=== PATIENT | male | born 1960 | race Two or more races ===

== ENCOUNTER 2018-01-21 11:02 | Day surgery (SDC) | payer OTHER, SELFPAY ==
[~2018-01-21] VITALS: Ht 182.9 cm; Wt 86.5 kg
[~2018-01-21 11:02] MED LIST: ALBU90I INH; ASCO1ER PO; Ascorbic Acid500 M2 PO; Ativan1 MG PO; CELE100; CELE200; CYCL10; CYCL10 PO; DIAZ10; DIAZ5 PO; DOCU100 PO; DULO30 PO; Daily Multiple1 EACH PO; Desyrel150 MG; FENT50TP; FENT75TP; FENT75TP TOP; FLUO10; HYDACE10B PO; HYDMOR2; HYDMOR2 PO; HYDMOR8; LORA2 PO; META800 PO; METH10; METH10 PO; METH40 PO; METO100ER PO; MORP10S; MORP15ER PO; MORP30 PO; MULVITA PO; MULVITMIND PO; NITR.4SL SL; NITR.4TPA TOP; OMEP10ER; OMEP20ER PO; ONDA4 PO; ONDA8ODT MM; OXYACE10; OXYACE10 PO; OXYACE5T PO; OXYC30 PO; PROM25; PROM25 PO; Promethazine HC50 M1 PO; ROPI.25 PO; TRAZ100 PO; TRAZ50; Vitamin C1000 M1 PO; Zanaflex4 M1 PO
== END 2018-01-21 13:23 | disposition home or self-care (01) ==
LOC: ORSCSDS 11:02
PROVIDERS: Anesthesiology
PROC: 3E0R33Z Introduction of Anti-inflammatory into Spinal Canal, Percutaneous Approach (ICD-10-PCS; principal; 2018-01-21 12:00)
DX: M96.1 Postlaminectomy syndrome, not elsewhere classified (principal); M54.12 Radiculopathy, cervical region; Z79.899 Other long term (current) drug therapy; I10 Essential (primary) hypertension; K21.9 Gastro-esophageal reflux disease without esophagitis; R56.9 Unspecified convulsions
CPT/HCPCS: J1040; J1885; J2250; J2405; J2550; J3010; J7040; J7120

== ENCOUNTER 2018-10-22 10:44 | Day surgery (SDC) | payer OTHER ==
[~2018-10-22] VITALS: Ht 182.9 cm; Wt 84.8 kg
--- NOTE | 2018-10-22 11:21 | NUR ---
10/22/18 1121 Patience Carlin PT NOTIFIED IN APPROXIMATE WAIT TIME. PT AWARE THAT HE IS EARLY AND IS UNDERSTANDING. KYM LYNN WITHIN REACH AND DAWN AT CHAIRSIDE. WARM BLANKET PROVIDED.
--- NOTE | 2018-10-22 12:33 | NUR ---
10/22/18 1233 Genesis Vasquez PATIENT TAKEN TO SDU WITHOUT S/S DISTRESS. NO C/O. VSS FOR PATIENT T/O CASE. PATIENT APPEARED TO TOLERATE CASE WITHOUT DIFFICULTY.
== END 2018-10-22 12:55 | disposition home or self-care (01) ==
LOC: ORSCSDS 10:44
PROVIDERS: Anesthesiology
PROC: 3E0R33Z Introduction of Anti-inflammatory into Spinal Canal, Percutaneous Approach (ICD-10-PCS; principal; 2018-10-22 12:00)
DX: M54.12 Radiculopathy, cervical region (principal); M96.1 Postlaminectomy syndrome, not elsewhere classified; M48.02 Spinal stenosis, cervical region; I10 Essential (primary) hypertension; K21.9 Gastro-esophageal reflux disease without esophagitis; Z79.899 Other long term (current) drug therapy
CPT/HCPCS: J1040; J1885; J2250; J2550; J3010; J7120

== ENCOUNTER 2019-04-28 07:58 | Emergency (ER) | payer OTHER ==
[~2019-04-28] VITALS: Ht 180.3 cm; Wt 85.7 kg
[2019-04-28] MEDS ORDERED: OMEP20ER PO (08:14)
[2019-05-12] MEDS ORDERED: TRAZ50 PO (11:24)
[2019-05-12] MEDS ORDERED: LORA2 PO (11:25)
[2019-06-23] MEDS ORDERED: Acerola C500 MG PO (14:46)
[2019-06-23] MEDS ORDERED: DAILY VALUE1 EACH PO (14:46)
[2019-06-23] MEDS ORDERED: Nitroglycerin0.4 MG SL (14:47)
== END 2019-04-28 08:35 | disposition home or self-care (01) ==
LOC: ER 07:58
DX: M79.674 Pain in right toe(s) (principal); F41.9 Anxiety disorder, unspecified
CPT/HCPCS: 99282

== ENCOUNTER 2019-05-17 13:33 | Day surgery (SDC) | payer OTHER ==
[~2019-05-17] VITALS: Ht 182.9 cm; Wt 86.3 kg
[~2019-05-17 13:33] MED LIST changes: +TRAZ50 PO
[2019-06-23] MEDS ORDERED: DAILY VALUE1 EACH PO (14:46)
[2019-06-23] MEDS ORDERED: Acerola C500 MG PO (14:46)
[2019-06-23] MEDS ORDERED: Nitroglycerin0.4 MG SL (14:47)
== END 2019-05-17 16:37 | disposition home or self-care (01) ==
LOC: ORSCSDS 13:33
PROVIDERS: Internal Medicine Gastroenterology
PROC: 0DB58ZX Excision of Esophagus, Via Natural or Artificial Opening Endoscopic, Diagnostic (ICD-10-PCS; principal; 2019-05-17 15:15)
PROC: 0DB68ZX Excision of Stomach, Via Natural or Artificial Opening Endoscopic, Diagnostic (ICD-10-PCS; principal; 2019-05-17 15:15)
PROC: 0D758ZZ Dilation of Esophagus, Via Natural or Artificial Opening Endoscopic (ICD-10-PCS; principal; 2019-05-17 15:15)
DX: R13.10 Dysphagia, unspecified (principal); K31.7 Polyp of stomach and duodenum; K20.9 Esophagitis, unspecified; K22.2 Esophageal obstruction; Z80.0 Family history of malignant neoplasm of digestive organs; I10 Essential (primary) hypertension; Z79.899 Other long term (current) drug therapy
CPT/HCPCS: 88305; 88342; J2405; J2704; J7120

== ENCOUNTER 2019-05-20 08:14 | Day surgery (SDC) | payer OTHER ==
[~2019-05-20] VITALS: Ht 182.9 cm; Wt 98.1 kg
--- NOTE | 2019-05-20 10:08 | NUR ---
05/20/19 1008 Rina Washington, MED C PHENERGAN AND TORADOL IV
[2019-06-23] MEDS ORDERED: Acerola C500 MG PO (14:46)
[2019-06-23] MEDS ORDERED: DAILY VALUE1 EACH PO (14:46)
[2019-06-23] MEDS ORDERED: Nitroglycerin0.4 MG SL (14:47)
== END 2019-05-20 10:57 | disposition home or self-care (01) ==
LOC: ORSCSDS 08:14
PROVIDERS: Anesthesiology
PROC: 3E0R33Z Introduction of Anti-inflammatory into Spinal Canal, Percutaneous Approach (ICD-10-PCS; principal; 2019-05-20 09:30)
DX: M96.1 Postlaminectomy syndrome, not elsewhere classified (principal); M54.12 Radiculopathy, cervical region; I10 Essential (primary) hypertension; Z79.899 Other long term (current) drug therapy
CPT/HCPCS: J1040; J1885; J2250; J2550; J3010

== ENCOUNTER 2019-07-08 06:05 | Day surgery (SDC) | payer OTHER ==
[~2019-07-08] VITALS: Ht 182.9 cm; Wt 85.7 kg
[~2019-07-08 06:05] MED LIST changes: +Acerola C500 MG PO; +DAILY VALUE1 EACH PO; +Nitroglycerin0.4 MG SL
--- NOTE | 2019-07-08 08:30 | NUR ---
07/08/19 0830 Rina Washington GIVEN PHENERGAN 12.5 MG X 2, PAITENT IS DRY HEAVING, HE STATES THIS IS COMMON FOR HIM AFTER ANY PROCEDURES
--- NOTE | 2019-07-08 09:06 | NUR ---
07/08/19905 Tierra Haile 0858 RECEIVED REPORT FROM [facility] SHE STATES PT IS READY TO BE DISCHARGED. PT AGREES THAT HE IS READY TO BE DISCHARGED, HE STATES HE JUST WANTS TO GO HOME AND SLEEP, VSS, STILL DRY HEAVING. HE STATES THAT IS NORMAL FOR HIM AND WANTS TO GO HOME. PROCEEDING TO DISCHARGE.
== END 2019-07-08 09:08 | disposition home or self-care (01) ==
LOC: ORSCSDS 06:05
PROVIDERS: Podiatrist Foot & Ankle Surgery
PROC: 0QBQ0ZZ Excision of Right Toe Phalanx, Open Approach (ICD-10-PCS; principal; 2019-07-08 07:30)
DX: M20.61 Acquired deformities of toe(s), unspecified, right foot (principal); I10 Essential (primary) hypertension; K21.9 Gastro-esophageal reflux disease without esophagitis; F41.9 Anxiety disorder, unspecified; Z79.899 Other long term (current) drug therapy; M79.674 Pain in right toe(s); R00.1 Bradycardia, unspecified; R94.31 Abnormal electrocardiogram [ECG] [EKG]
CPT/HCPCS: 80048; 85025; 93005; J0171; J0690; J1100; J2250; J2405; J2550; J2704; J3010; J7120

== ENCOUNTER 2019-07-12 10:36 | Day surgery (SDC) | payer OTHER ==
[~2019-07-12] VITALS: Ht 182.9 cm; Wt 83.9 kg
--- NOTE | 2019-07-12 12:21 | NUR ---
07/12/19 1221 Suad Arango 1 TRY VEIN MOVED RIGHT HAND 2 TRY RIGHT WRIST VEIN MOVED 3 TRY GOOD UPPER ARM RIGHT
== END 2019-07-12 14:29 | disposition home or self-care (01) ==
LOC: ORSCSDS 10:36
PROVIDERS: Internal Medicine Gastroenterology
PROC: 0DBN8ZX Excision of Sigmoid Colon, Via Natural or Artificial Opening Endoscopic, Diagnostic (ICD-10-PCS; principal; 2019-07-12 13:00)
PROC: 0DBE8ZX Excision of Large Intestine, Via Natural or Artificial Opening Endoscopic, Diagnostic (ICD-10-PCS; principal; 2019-07-12 13:00)
DX: R19.7 Diarrhea, unspecified (principal); Z80.0 Family history of malignant neoplasm of digestive organs; Z86.010 Personal history of colon polyps; D12.5 Benign neoplasm of sigmoid colon; K57.30 Diverticulosis of large intestine without perforation or abscess without bleeding; K64.8 Other hemorrhoids; K21.9 Gastro-esophageal reflux disease without esophagitis; F41.9 Anxiety disorder, unspecified; Z86.73 Personal history of transient ischemic attack (TIA), and cerebral infarction without residual deficits; I10 Essential (primary) hypertension; Z79.899 Other long term (current) drug therapy
CPT/HCPCS: 88305; J2405; J2704; J7120

== ENCOUNTER 2019-08-30 11:36 | Observation (INO) | payer OTHER, SELFPAY ==
[~2019-08-30] VITALS: Ht 182.9 cm; Wt 90.2 kg
[~2019-08-30 11:36] MED LIST changes: -METO100ER PO; +METO50ER PO
[2019-08-30 12:25] LABS: BASOPHILS ABSOLUTE AUTO 0.02 K/mm3 (0.00-0.23); BASOPHILS PERCENT AUTO 0 % (0-2); EOSINOPHILS ABSOLUTE AUTO 0.17 K/mm3 (0.00-0.68); EOSINOPHILS PERCENT AUTO 4 % (0-6); Hematocrit 43.8 % (37.0-53.0); Hemoglobin 14.3 g/dL (13.5-17.5); IMMATURE GRAN PERCENT AUTO 0 % (0-1); LYMPHOCYTES ABSOLUTE AUTO 2.34 K/mm3 (0.84-5.20); LYMPHOCYTES PERCENT AUTO 49 % (21-46); MONOCYTES ABSOLUTE AUTO 0.37 K/mm3 (0.16-1.47); MONOCYTES PERCENT AUTO 8 % (4-13); Mean Corpuscular HGB Conc 32.6 g/dL (31.5-36.5); Mean Corpuscular Volume 95 fL (80-100); Mean Platelet Volume 9.7 fL (9.1-12.4); NEUTROPHILS ABSOLUTE AUTO 1.92 K/mm3 (1.96-9.15); NEUTROPHILS PERCENT AUTO 40 % (41-73); Platelet Count 263 K/mm3 (150-400); RDW Coefficient Variation 13.3 % (11.7-14.2); Red Blood Cell Count 4.62 M/mm3 (4.30-5.90); White Blood Cell Count 4.82 K/mm3 (4.00-11.30)
[2019-08-30 12:46] LABS: Alanine Aminotransfer (ALT/SGP 49 U/L (12-78); Albumin, Blood 4.1 g/dL (3.4-5.0); Albumin/Globulin Ratio 1.1 (0.8-1.8); Alk Phos 65 U/L (50-136); Anion Gap 6 mmol/L (6-16); Aspartate Aminotrans (AST/SGOT 25 U/L (12-37); Bilirubin, Total 0.3 mg/dL (0.1-1.0); Blood Urea Nitrogen 13 mg/dL (8-24); Bun/Creatinine Ratio 15.6 (12.0-20.0); CO2, Blood 26 mmol/L (21-32); Calcium, Blood 8.6 mg/dL (8.5-10.1); Chloride, Blood 108 mmol/L (98-108); Creatinine, Blood 0.83 mg/dL (0.60-1.20); Globulin, Blood 3.8 g/dL (2.2-4.0); Glomerular Filtration Rate >60 (60-); Glucose, Blood 147 mg/dL (70-99); Potassium, Blood 3.8 mmol/L (3.5-5.5); Sodium, Blood 140 mmol/L (136-145); Total Protein, Blood 7.9 g/dL (6.4-8.2)
[2019-08-30 13:04] LABS: International Normalized Ratio 0.94
[2019-08-30] MEDS ORDERED: Vitamin D2000 UNIT PO (16:53)
--- NOTE | 2019-08-30 19:29 | NUR ---
PT FROM ER VIA STRETCHER; TRANSFERED SELF TO BED; PT ALERT; C/O HEADACHE; PT OFFERED COLD WASH CLOTH; MEDICATED PER EMAR; ANSWERED ADMIT QUESTIONS APPROPRIATELY; PO MEDICATIONS TAKEN W/ NO CONCERNS; PT ON RA; O2 SATS >95; LUNG SOUNDS CLEAR T/O; IN AT BEDSIDE, BROUGHT PT FAST FOOD CHEESBURGER; PT DISPLAYS HORIZONTAL AND VERTICAL NYSTAGMUS; PT DISPLAYS JITTERY MOVEMENTS; STATES R HAND GRASP WEAKENED DUE TO NECK PLATE WHEN PERFORMING NEURO CHECK; CALL LIGHT IN REACH; BED IN LOWEST POSITION; HAND OFF GIVEN TO NOC RN
--- NOTE | 2019-08-30 21:26 | NUR ---
ASSUMED CARE OF PATIENT AT APPROXIMATELY 1910 FROM HALI Mccollum RN. PATIENT ALERT AND ORIENTED X4; APPEARS ANXIOUS. PATIENT REPORTS PAIN IN HEAD; HAD PAIN EARLIER IN ER; CALLED CHANDRA HARDEN FOR SAME MEDICATION GIVEN IN ER; ORDERS RECIEVED. 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 PATIENT HAS TINGLING IN HIS LEFT SIDE OF HIS FACE "NEEDLES AND NUMBNESS"; REPORTS COMES AND GOES. PATIENT HAS LEFT SIDED FACIAL DROOP OFF AND ON. NO WEAKNESS NOTED. ASSISTED PATIENT TO BATHROOM AND BACK TO BED. NSR ON TELE; OXYGEN SATURATION ABOVE 90% ON ROOM AIR. PIV S/L. PATIENT CURRENTLY RESTING IN BED; CALL LIGHT IN REACH; BED IN LOWEST POSISTION; BED ALARM ON; WILL CONTINUE TO MONITOR AND ASSESS UNTIL END OF SHIFT.
--- NOTE | 2019-08-30 21:55 | NUR ---
PATIENT CALLED STAFF TO ROOM TO REPORT NAUSEA; VOMITTED CHEESEBURGER THAT HAD BROUGHT IN; LINENS CHANGED. IV ZOFRAN GIVEN AND CALLED TERMINOLOGIST FINA TO REPORT PATIENT REQUEST FOR PO PHENERGAN. ORDERS RECIEVED.
--- NOTE | 2019-08-30 22:15 | NUR ---
WHEN REASSESSING PATIENT'S HEADACHE AFTER MEDICATION PATIENT REPORTS CP; SIMILAR IN ED; PUTS HAND ON LEFT BREAST; REPORTS NITRO GAVE HIM THE HEADACHE. PATIENT ALSO REPORTS AT THIS TIME HE TAKES 6X IBUPROFEN FOR HIS CHRONIC PAIN AT HOME (~1200 MG OF IBUPROFEN). CHANDRA HARDEN IN UNIT; UPDATED ON PATIENT STATUS; EKG DONE; ORDERS RECIEVED.
--- NOTE | 2019-08-31 06:24 | NUR ---
PATIENT'S BLOOD PRESSURE CONTINUE TO DECREASE; LAST SBP IN THE 90'S; TROPONIN 0200 DRAW LATE DUE TO PATIENT CARE. PATIENT SLEPT ABOUT SIX HOURS. NO OTHER ACUTE CHANGES TO REPORT. WILL CONTINUE TO MONITOR AND ASSESS UNTIL END OF SHIFT.
--- NOTE | 2019-08-31 10:30 | NUR ---
Echocardiogram completed.
--- NOTE | 2019-08-31 19:18 | NUR ---
SHIFT SUMMARY AND TRANSFER NOTE PT A&Ox4. ANXIOUS BUT COOPERATIVE WITH CARE. PT RESTINGI N BED FOR MAJORITY OF SHIFT, UP IN ROOM IND. PT REPORTS PAIN IN NECK AND HEADACHE FOR MAJORITY OF SHIFT. MEDICATED WITH OXYCODONE x1 WITH LITTLE RESULTS, THEN A DOSE OF DILAUDID AND TORADOL WITH POSITIVE RESULTS, AFTER MRI PT REPORTS SEVERE HEADACHE, MEDICATED WITH NORCO WITH NO RESULTS, NOTIFIED DR NAIDU NEW ORDERS FOR DILAUDID, MEDICATED WITH POSTIIVE RESULTS. PT REPORTS NAUSEA THIS AFTERNOON AND THEN EVENING AFTER MRI, MEDICATED WTIH PHENERGAN AND ZOFRAN WITH POSTIIVE RESULTS. PT STATES " I NEED SOMETHING TO KEEP ME STILL DURING THE MRI", DR NAIDU NOTIFIED NEW ORDERS FOR VALUIM 10MG IV ONCE, ADMINISTERED PRIOR TO TRANSPORTED TO [facility]. VSS. NO OTHER ACUTE CHANGES NOTED DURING SHIFT. REPORT GIVEN TO ROLAN CALDERON RN ON MEDICAL FLOOR. PT TRANSFERED TO [facility] AT 1850.
--- NOTE | 2019-09-01 04:31 | NUR ---
SHIFT SUMMARY SANTIAGO'S LS WERE CLR T/O AND BT+ X4. SATNIAGO ATE DINNER AND QUITE A FEW SNACKS BEFORE GOING TO BED LAST NIGHT. HE STATED HE HAS BEEN TRYING TO GAIN SOME OF HIS WEIGHT BACK AFTER HE LOST A SIGNIFICANT AMOUNT OF WEIGHT AFTER BEING DX WITH CANCER A COUPLE OF YEARS AGO. HE ALSO STATES HE HAS A HIGH METABOLISM AND HIS BRINGS HIM SNACKS WELL. HE RECEIVED ALL OF HIS SCHEDULED MEDS BEFORE BED AND APPEARS TO BE SLEEPING T/O THE NIGHT. HIS BP WAS LOW AT 98/62 EARLIER IN THE EVENING LAST NIGHT THEN THE PARKING OFFICER TOOK IT AGAIN RIGHT BEFORE GIVING HIM HIS BP MEDS. IT HAD GONE UP TO 123/83, SO THIS RN GAVE HIM HIS BP MEDS. ONCE HIS PAIN IS CONTROLLED AND BP REGULATED, HE WILL BE D/C'D FROM THE HOSPITAL HE STATED.
[2019-09-01] MEDS ORDERED: ASPI81CH PO (11:32)
[2019-09-01] MEDS ORDERED: Prinivil10 MG PO (11:33)
[2019-09-01] MEDS ORDERED: FAMO20 PO (11:33)
[2019-09-01] MEDS ORDERED: NAPROXEN500 MG PO (11:34)
--- NOTE | 2019-09-01 11:53 | NUR ---
Pt. is din bed resting and waiting for his discharge today wished pt all the best and offered some mprayers.
--- NOTE | 2019-09-01 15:20 | NUR ---
PT. DISCHARGED HOME WITH SPOUSE. INSTRUCTIONS GIVEN AND FOLLOW UP APPPOINTMENTS.
== END 2019-09-01 15:21 | disposition home or self-care (01) ==
LOC: ER 11:36 → PCU 11:37 → ER 17:29 → PCU 17:45 → MEDS 08-31 19:02 → ENPENDDIS 09-01 09:30 → MEDS 09-01 15:21
PROVIDERS: Emergency Medicine; ADMIT Internal Medicine
DX: I16.0 Hypertensive urgency (principal); G43.109 Migraine with aura, not intractable, without status migrainosus; R07.9 Chest pain, unspecified; R29.810 Facial weakness; G10 Huntington's disease; I10 Essential (primary) hypertension; G89.29 Other chronic pain; M54.9 Dorsalgia, unspecified; K21.0 Gastro-esophageal reflux disease with esophagitis; Z87.442 Personal history of urinary calculi; Z86.73 Personal history of transient ischemic attack (TIA), and cerebral infarction without residual deficits; Z87.891 Personal history of nicotine dependence; Z88.7 Allergy status to serum and vaccine; Z88.8 Allergy status to other drugs, medicaments and biological substances; Z79.1 Long term (current) use of non-steroidal anti-inflammatories (NSAID); Z79.82 Long term (current) use of aspirin; Z79.899 Other long term (current) drug therapy
CPT/HCPCS: 36415; 70450; 70551; 80053; 84484; 85025; 85610; 85730; 90686; 93005; 93010; 93880; 96372; 96374; 96375; 96376; 99285-25; A9270; G0008; G0378; J0360; J1170; J1650; J1885; J2405; J3360

== ENCOUNTER 2019-09-07 09:55 | Day surgery (SDC) | payer OTHER, SELFPAY ==
[~2019-09-07] VITALS: Ht 182.9 cm; Wt 89.3 kg
[~2019-09-07 09:55] MED LIST changes: +ASPI81CH PO; +FAMO20 PO; +NAPROXEN500 MG PO; +Prinivil10 MG PO; +Vitamin D2000 UNIT PO
--- NOTE | 2019-09-07 12:05 | NUR ---
09/07/19 1205 Genesis Vasquez 1136 72, 99%, 165/119- DR NOTIFIED OF BP, NO ORDERS RECEIVED. 1139 75, 98%, 139/95
--- NOTE | 2019-09-07 12:15 | NUR ---
09/07/19 1215 Rina Washington PATIENT DRY HEAVING , NO ACTUAL EMISIS, MED WITH PHENERGAN 12.5MG IV, TORADOL 30 MG IV, STATES IS NOW FEELING BETTER.
== END 2019-09-07 12:27 | disposition home or self-care (01) ==
LOC: ORSCSDS 09:55
PROVIDERS: Anesthesiology
PROC: 3E0R33Z Introduction of Anti-inflammatory into Spinal Canal, Percutaneous Approach (ICD-10-PCS; principal; 2019-09-07 11:00)
DX: M54.12 Radiculopathy, cervical region (principal); M48.02 Spinal stenosis, cervical region; M96.1 Postlaminectomy syndrome, not elsewhere classified; I10 Essential (primary) hypertension; F41.8 Other specified anxiety disorders; Z79.899 Other long term (current) drug therapy
CPT/HCPCS: J1040; J1885; J2250; J2550; J7040

== ENCOUNTER 2019-12-15 10:00 | Day surgery (SDC) | payer OTHER, SELFPAY ==
[~2019-12-15] VITALS: Ht 182.9 cm; Wt 92.3 kg
[2019-12-15] MEDS ORDERED: ALPR.5 (10:13)
[2019-12-15] MEDS ORDERED: Catapres-Tts 11 EACH (10:13)
[2019-12-15] MEDS ORDERED: BENADRYL25 M1 (10:14)
[2019-12-15] MEDS ORDERED: EDARBYCLOR 40-1 EAC1 (10:14)
--- NOTE | 2019-12-15 12:37 | NUR ---
12/15/19 1237 Tierra Haile PT INFORMED OF LONG DELAY DUE TO PREVIOUS CASE PT WANTS TO STATY AND WAIT.
--- NOTE | 2019-12-15 13:27 | NUR ---
12/15/19 1327 Autumn Cisneros SITTING WITH HEAD FORWARD ON PILLOW
== END 2019-12-15 13:48 | disposition home or self-care (01) ==
LOC: ORSCSDS 10:00
PROVIDERS: Anesthesiology
PROC: B01B1ZZ Fluoroscopy of Spinal Cord using Low Osmolar Contrast (ICD-10-PCS; principal; 2019-12-15 12:30)
PROC: 3E0R33Z Introduction of Anti-inflammatory into Spinal Canal, Percutaneous Approach (ICD-10-PCS; principal; 2019-12-15 12:30)
DX: M54.12 Radiculopathy, cervical region (principal); I10 Essential (primary) hypertension; Z79.899 Other long term (current) drug therapy
CPT/HCPCS: J1040; J2250; J7040

== ENCOUNTER 2019-12-28 00:16 | Day surgery (SDC) | payer OTHER, SELFPAY ==
[~2019-12-28 00:16] MED LIST changes: +ALPR.5; +BENADRYL25 M1; +Catapres-Tts 11 EACH; +EDARBYCLOR 40-1 EAC1
[2019-12-28] MEDS ORDERED: OMEP20ER PO (08:33)
== END 2019-12-28 09:30 | disposition home or self-care (01) ==
LOC: ATC 00:16
DX: E27.0 Other adrenocortical overactivity (principal); I12.9 Hypertensive chronic kidney disease with stage 1 through stage 4 chronic kidney disease, or unspecified chronic kidney disease; N18.2 Chronic kidney disease, stage 2 (mild); D63.1 Anemia in chronic kidney disease; Z88.7 Allergy status to serum and vaccine; Z88.8 Allergy status to other drugs, medicaments and biological substances; E03.9 Hypothyroidism, unspecified; F41.9 Anxiety disorder, unspecified; Z79.899 Other long term (current) drug therapy
CPT/HCPCS: 36415; 80400; 82533; J0834

== ENCOUNTER → 2020-01-03 | Outpatient (CLI) | payer OTHER, SELFPAY ==
[2020-01-03 17:09] LABS: Protein, Urine Quantitative 9.1 mg/dL (0.0-11.9)
[2020-01-03 17:11] LABS: Microalbumin, Urine Quant. 17.5 mg/L (0.000-20.000)
== END | disposition home or self-care (01) ==
LOC: LAB 13:51 → LAB SHORT 13:51 → LAB FUT 10-21 08:05
PROVIDERS: Internal Medicine Nephrology
DX: N18.2 Chronic kidney disease, stage 2 (mild) (principal); D63.1 Anemia in chronic kidney disease; N25.81 Secondary hyperparathyroidism of renal origin; E55.9 Vitamin D deficiency, unspecified; E78.00 Pure hypercholesterolemia, unspecified; R76.9 Abnormal immunological finding in serum, unspecified; R94.5 Abnormal results of liver function studies; R94.6 Abnormal results of thyroid function studies; R73.09 Other abnormal glucose
CPT/HCPCS: 81050; 82043; 82570; 84156; 84300

== ENCOUNTER 2020-08-02 08:55 | Day surgery (SDC) | payer OTHER ==
[~2020-08-02] VITALS: Ht 182.9 cm; Wt 87.8 kg
[2020-08-02] MEDS ORDERED: TEMA15 PO (10:39)
--- NOTE | 2020-08-02 11:16 | NUR ---
08/02/20 1116 Heidi Gonsalez. PER VERSED 4MG IV GIVEN DURING PROCEDURE
== END 2020-08-02 11:45 | disposition home or self-care (01) ==
LOC: ORSCSDS 08:55
PROVIDERS: Anesthesiology
PROC: 3E0R33Z Introduction of Anti-inflammatory into Spinal Canal, Percutaneous Approach (ICD-10-PCS; principal; 2020-08-02 11:30)
DX: M96.1 Postlaminectomy syndrome, not elsewhere classified (principal); M54.12 Radiculopathy, cervical region; I10 Essential (primary) hypertension; E78.00 Pure hypercholesterolemia, unspecified; K21.9 Gastro-esophageal reflux disease without esophagitis; M48.00 Spinal stenosis, site unspecified; Z79.899 Other long term (current) drug therapy
CPT/HCPCS: J1040; J1885; J2250; J2550

== ENCOUNTER 2020-09-24 09:21 | Day surgery (SDC) | payer OTHER ==
[~2020-09-24] VITALS: Ht 182.9 cm; Wt 86.2 kg
[~2020-09-24 09:21] MED LIST changes: -ALPR.5; +ALPR.5 PO; +CLON.1 PO; -Catapres-Tts 11 EACH; +TEMA15 PO
[2020-09-24] MEDS ORDERED: EDARBI40 MG PO (10:04)
--- NOTE | 2020-09-24 10:26 | NUR ---
09/24/20 1025 Maureen Adams VERSED 4MG TOTAL GIVEN AT THE DIRECTION OF DR. TREVINO.
--- NOTE | 2020-09-24 11:11 | NUR ---
09/24/20 Ally Dangelo PT FEELING NAUSEATED, EMESIS SMALL AMOUNTS OF CLEAR FLUID INTO EMESIS BAG. RN TREATED WITH IV MEDICATION PER DR'S ORDERS. PO FLUIDS AND CRACKERS AT CHAIRSIDE. RN WENT OVER DISCHARGE INSTRUCTIONS UNTIL ALL QUESTIONS WERE ANSWERED.
== END 2020-09-24 11:20 | disposition home or self-care (01) ==
LOC: ORSCSDS 09:21
PROVIDERS: Anesthesiology
PROC: 3E0R3BZ Introduction of Anesthetic Agent into Spinal Canal, Percutaneous Approach (ICD-10-PCS; principal; 2020-09-24 11:30)
PROC: 3E0R33Z Introduction of Anti-inflammatory into Spinal Canal, Percutaneous Approach (ICD-10-PCS; principal; 2020-09-24 11:30)
PROC: B01B1ZZ Fluoroscopy of Spinal Cord using Low Osmolar Contrast (ICD-10-PCS; principal; 2020-09-24 11:30)
DX: M54.12 Radiculopathy, cervical region (principal); M96.1 Postlaminectomy syndrome, not elsewhere classified; E78.00 Pure hypercholesterolemia, unspecified; K21.9 Gastro-esophageal reflux disease without esophagitis; I10 Essential (primary) hypertension; Z79.899 Other long term (current) drug therapy
CPT/HCPCS: J1040; J1885; J2250; J2550; J7040

== ENCOUNTER 2021-01-02 09:44 | Day surgery (SDC) | payer OTHER, SELFPAY ==
[~2021-01-02] VITALS: Ht 182.9 cm; Wt 87.2 kg
[~2021-01-02 09:44] MED LIST changes: +EDARBI40 MG PO
[2021-01-02] MEDS ORDERED: EDARBI40 MG PO (10:19)
--- NOTE | 2021-01-02 11:11 | NUR ---
01/02/21 Genesis Summers PATIENT TAKEN TO SDU AFTER INJECTION. ALERT, DROWSY. VSS REMAIN STABLE. NO C/O OR S/S DISTRESS. REPORT GIVEN TO RN.
== END 2021-01-02 11:30 | disposition home or self-care (01) ==
LOC: ORSCSDS 09:44
PROVIDERS: Anesthesiology
PROC: 3E0R33Z Introduction of Anti-inflammatory into Spinal Canal, Percutaneous Approach (ICD-10-PCS; principal; 2021-01-02 11:00)
DX: M54.12 Radiculopathy, cervical region (principal); I10 Essential (primary) hypertension; E78.00 Pure hypercholesterolemia, unspecified; K21.9 Gastro-esophageal reflux disease without esophagitis; Z79.899 Other long term (current) drug therapy
CPT/HCPCS: J1040; J1100; J1885; J2250; J2405; J2550

== ENCOUNTER 2021-08-05 09:14 | Day surgery (SDC) | payer OTHER ==
[~2021-08-05] VITALS: Ht 180.3 cm; Wt 84.4 kg
--- NOTE | 2021-08-05 11:06 | NUR ---
08/05/21 1106 Maureen Adams VERSED GIVEN PER VERBAL ORDER FROM DR. TREVINO.
== END 2021-08-05 11:28 | disposition home or self-care (01) ==
LOC: ORSCSDS 09:14
PROVIDERS: Anesthesiology
PROC: 3E0R33Z Introduction of Anti-inflammatory into Spinal Canal, Percutaneous Approach (ICD-10-PCS; principal; 2021-08-05 10:45)
DX: M54.12 Radiculopathy, cervical region (principal); E78.00 Pure hypercholesterolemia, unspecified; K21.9 Gastro-esophageal reflux disease without esophagitis; Z79.899 Other long term (current) drug therapy
CPT/HCPCS: J1040; J1885; J2250; J2550; J7120

== ENCOUNTER 2021-09-02 09:19 | Day surgery (SDC) | payer OTHER ==
[~2021-09-02] VITALS: Ht 182.9 cm; Wt 84.9 kg
--- NOTE | 2021-09-02 10:46 | NUR ---
09/02/21 1046 Candis Díaz 200 MG [address] USED BY DR TREVINO DURING PROCEDURE.
== END 2021-09-02 11:15 | disposition home or self-care (01) ==
LOC: ORSCSDS 09:19
PROVIDERS: Anesthesiology
PROC: 3E0R33Z Introduction of Anti-inflammatory into Spinal Canal, Percutaneous Approach (ICD-10-PCS; principal; 2021-09-02 10:45)
DX: M54.12 Radiculopathy, cervical region (principal); E78.00 Pure hypercholesterolemia, unspecified; I10 Essential (primary) hypertension; K21.9 Gastro-esophageal reflux disease without esophagitis; Z79.899 Other long term (current) drug therapy
CPT/HCPCS: J1040; J1885; J2250; J2550; J7040

== ENCOUNTER → 2021-09-05 | Outpatient (CLI) | payer OTHER ==
[2021-09-05 15:36] LABS: U Amphetamine Screen Not Detected; U Barbituate Screen Not Detected; U Methamphetamine Screen DETECTED
[2021-09-05 15:37] LABS: U Benzodiazapine Screen DETECTED; U Buprenorphine Screen Not Detected; U Cannabinoids Screen DETECTED; U Cocaine Screen Not Detected; U Methadone Screen Not Detected; U Opiates Screen Not Detected; U Oxycodone Screen Not Detected; U Phencyclidine Screen Not Detected; U Propoxyphene Screen Not Detected
== END | disposition home or self-care (01) ==
LOC: LAB SHORT 10:40
PROVIDERS: Nurse Practitioner Family
DX: Z51.81 Encounter for therapeutic drug level monitoring (principal); Z79.899 Other long term (current) drug therapy

== ENCOUNTER 2022-03-27 13:19 | Day surgery (SDC) | payer OTHER ==
[~2022-03-27] VITALS: Ht 182.9 cm; Wt 87.9 kg
--- NOTE | 2022-03-27 15:07 | NUR ---
03/27/22 1507 Genesis Vasquez PATIENT TAKEN TO RECOVERY. A/A/O. NO S/S DISTRESS. [facility]JANIS BROUGHT PT TO OR, MONITORED AND TOOK PATIENT TO RECOVERY.
== END 2022-03-27 15:46 | disposition home or self-care (01) ==
LOC: ORSCSDS 13:19
PROVIDERS: Anesthesiology
PROC: 3E0R33Z Introduction of Anti-inflammatory into Spinal Canal, Percutaneous Approach (ICD-10-PCS; principal; 2022-03-27 14:30)
DX: M96.1 Postlaminectomy syndrome, not elsewhere classified (principal); M54.2 Cervicalgia; M48.02 Spinal stenosis, cervical region; I10 Essential (primary) hypertension; E78.00 Pure hypercholesterolemia, unspecified; K21.9 Gastro-esophageal reflux disease without esophagitis; Z79.899 Other long term (current) drug therapy
CPT/HCPCS: J1040; J1885; J2250; J2550; J7120

== ENCOUNTER 2022-08-01 11:36 | Day surgery (SDC) | payer OTHER ==
[~2022-08-01] VITALS: Ht 182.9 cm; Wt 87.8 kg
--- NOTE | 2022-08-01 12:35 | NUR ---
08/01/22 1235 Rosamaria Arreola ATTEMPT IV IN RH & RFA WITH 20G WITHOUT SUCCESS.
== END 2022-08-01 13:46 | disposition home or self-care (01) ==
LOC: ORSCSDS 11:36
PROVIDERS: Anesthesiology
PROC: 3E0R33Z Introduction of Anti-inflammatory into Spinal Canal, Percutaneous Approach (ICD-10-PCS; principal; 2022-08-01 12:45)
DX: M96.1 Postlaminectomy syndrome, not elsewhere classified (principal); M54.12 Radiculopathy, cervical region; M48.00 Spinal stenosis, site unspecified; Z79.899 Other long term (current) drug therapy
CPT/HCPCS: J1040; J1885; J2250; J2550; J7120

== ENCOUNTER 2022-12-10 06:10 | Day surgery (SDC) | payer OTHER ==
[~2022-12-10] VITALS: Ht 182.9 cm; Wt 86.8 kg
--- NOTE | 2022-12-10 08:09 | NUR ---
12/10/22 0809 Nasrin Garcia IV TORADOL 30MG IV AND IV PHENERGAN 25MG IV GIVEN ORDERED BY MD TREVINO.
== END 2022-12-10 08:19 | disposition home or self-care (01) ==
LOC: ORSCSDS 06:10
PROVIDERS: Anesthesiology
PROC: 3E0R33Z Introduction of Anti-inflammatory into Spinal Canal, Percutaneous Approach (ICD-10-PCS; principal; 2022-12-10 07:30)
PROC: 3E0R3BZ Introduction of Anesthetic Agent into Spinal Canal, Percutaneous Approach (ICD-10-PCS; principal; 2022-12-10 07:30)
DX: M54.12 Radiculopathy, cervical region (principal); M43.22 Fusion of spine, cervical region; K21.9 Gastro-esophageal reflux disease without esophagitis; R03.0 Elevated blood-pressure reading, without diagnosis of hypertension; L63.0 Alopecia (capitis) totalis; M48.00 Spinal stenosis, site unspecified; Z79.899 Other long term (current) drug therapy
CPT/HCPCS: J1040; J1100; J1885; J2250; J2405; J2550

== ENCOUNTER 2023-08-07 09:08 | Day surgery (SDC) | payer OTHER ==
[~2023-08-07] VITALS: Ht 182.9 cm; Wt 90.1 kg
[2023-08-07] MEDS ORDERED: METO100 PO (09:50)
--- NOTE | 2023-08-07 11:44 | NUR ---
08/07/23 1144 Ally Patricia REPORT GIVEN TO NURSE HOUGH AT 1140.
[2023-08-07 12:46] VITALS: BP 137/96
== END 2023-08-07 12:03 | disposition home or self-care (01) ==
LOC: ORSCSDS 09:08
PROVIDERS: Anesthesiology
PROC: 3E0R3BZ Introduction of Anesthetic Agent into Spinal Canal, Percutaneous Approach (ICD-10-PCS; principal; 2023-08-07 10:30)
PROC: 3E0R33Z Introduction of Anti-inflammatory into Spinal Canal, Percutaneous Approach (ICD-10-PCS; principal; 2023-08-07 10:30)
DX: M54.12 Radiculopathy, cervical region (principal); M48.00 Spinal stenosis, site unspecified; I10 Essential (primary) hypertension; K21.9 Gastro-esophageal reflux disease without esophagitis; Z79.899 Other long term (current) drug therapy
CPT/HCPCS: J1040; J1885; J2250; J2405; J7120

== ENCOUNTER 2023-11-12 13:18 | Day surgery (SDC) | payer OTHER ==
[~2023-11-12] VITALS: Ht 182.9 cm; Wt 88.9 kg
[~2023-11-12 13:18] MED LIST changes: +METO100 PO; +NS 500 ML IV ONE; +methylPREDNISolone acetate 80 MG/ML 1MLVIAL ONE
[2023-11-12] MEDS ORDERED: NS 500 ML IV ONE (13:42)
[2023-11-12] MEDS ORDERED: Midazolam HCL 1 MG/ML 5MLVIAL ONE (14:12)
[2023-11-12] MEDS ORDERED: Ketorolac Tromethamine 30mg Vial ONE (15:02)
--- NOTE | 2023-11-12 15:08 | NUR ---
11/12/23 1508 Genesis Vasquez 1436 2 MG VERSED GIVEN IVP PER DR TREVINO 1438 2 MG VERSED GIVEN IVP PER DR TREVINO 68, 98%, 115/93 69, 99, 105/85 PATIENT REMAINED ALERT AND APPROPRIATE T/O PROCEDURE. PATIENT TAKEN TO SDU WITHOUT S/S DISTRESS. REPORT GIVEN TO SDU NURSE.
[2023-11-12] MEDS ORDERED: Prochlorperazine Edisylate 10 mg Vial IV PRN (15:10)
[2023-11-12 15:39] VITALS: BP 96/67
--- NOTE | 2023-11-12 15:39 | NUR ---
11/12/23 1539 JUAN ROSEN PT N/V HAS CEASED; COMPAZINE 10MG IV GIVEN W/O ANY ADVERSE REATION VITALS STABLE.
== END 2023-11-12 15:41 | disposition home or self-care (01) ==
LOC: ORSCSDS 13:18
PROVIDERS: Anesthesiology
PROC: 3E0R3BZ Introduction of Anesthetic Agent into Spinal Canal, Percutaneous Approach (ICD-10-PCS; principal; 2023-11-12 14:30)
PROC: 3E0R33Z Introduction of Anti-inflammatory into Spinal Canal, Percutaneous Approach (ICD-10-PCS; principal; 2023-11-12 14:30)
DX: M54.12 Radiculopathy, cervical region (principal); M96.1 Postlaminectomy syndrome, not elsewhere classified; M48.02 Spinal stenosis, cervical region; I10 Essential (primary) hypertension; K21.9 Gastro-esophageal reflux disease without esophagitis; Z79.899 Other long term (current) drug therapy
CPT/HCPCS: J0780; J1040; J1885; J2250; J7040

== ENCOUNTER 2025-07-28 22:31 | Observation (INO) | payer OTHER ==
[~2025-07-28] VITALS: Ht 182.9 cm; Wt 80.5 kg
[~2025-07-28 22:31] MED LIST changes: -NS 500 ML IV ONE; -methylPREDNISolone acetate 80 MG/ML 1MLVIAL ONE
[2025-07-28] MEDS ORDERED: Ondansetron HCl 2 MG / ML 2ML Vial IV PRN (22:55)
[2025-07-28] MEDS ORDERED: DiphenhydrAMINE HCl 50 MG/ML 1ML Vial IV ONE (23:05)
[2025-07-28 23:06] LABS: BASOPHILS ABSOLUTE AUTO 0.02 K/mm3 (0.00-0.23); BASOPHILS PERCENT AUTO 0 % (0-2); EOSINOPHILS ABSOLUTE AUTO 0.08 K/mm3 (0.00-0.68); EOSINOPHILS PERCENT AUTO 1 % (0-6); Hematocrit 47.7 % (37.0-53.0); Hemoglobin 16.0 g/dL (13.5-17.5); IMMATURE GRAN ABSOLUTE AUTO 0.02 K/mm3 (0.00-0.10); IMMATURE GRAN PERCENT AUTO 0 % (0-1); LYMPHOCYTES ABSOLUTE AUTO 1.89 K/mm3 (0.84-5.20); LYMPHOCYTES PERCENT AUTO 17 % (21-46); MONOCYTES ABSOLUTE AUTO 0.80 K/mm3 (0.16-1.47); MONOCYTES PERCENT AUTO 7 % (4-13); Mean Corpuscular HGB Conc 33.5 g/dL (31.5-36.5); Mean Corpuscular Volume 93 fL (80-100); NEUTROPHILS ABSOLUTE AUTO 8.67 K/mm3 (1.96-9.15); NEUTROPHILS PERCENT AUTO 75 % (41-73); NRBC ABSOLUTE 0.00 K/mm3 (0.00-0.02); NRBC Auto 0.0 /100 WBC (0.0-0.2); Platelet Count 290 K/mm3 (150-400); RDW Coefficient Variation 13.0 % (11.7-14.2); RDW Standard Deviation 45.0 fL (35.1-46.3)
[2025-07-28] MEDS ORDERED: NS 1,000 ML IV SCH (23:10)
[2025-07-28] MEDS ORDERED: EpiNEPhrine 1 MG/1 ML 1ML Vial IM ONE ×2 (23:30→23:40)
[2025-07-28 23:32] LABS: Magnesium, Blood 2.0 mg/dL (1.6-2.4)
[2025-07-28] MEDS ORDERED: Albuterol 2.5 MG/3 ML VIAL INH SCH (23:40)
[2025-07-28 23:41] LABS: Alanine Aminotransfer (ALT/SGP 75.0 U/L (12-78); Albumin, Blood 4.1 g/dL (3.4-5.0); Albumin/Globulin Ratio 1.1 (0.8-1.8); Anion Gap 13.0 mmol/L (3-11); Aspartate Aminotrans (AST/SGOT 54.0 U/L (12-37); Bilirubin, Total 0.6 mg/dL (0.1-1.0); Blood Urea Nitrogen 11.0 mg/dL (8-24); CO2, Blood 21.0 mmol/L (21-32); Calcium, Blood 8.8 mg/dL (8.5-10.1); Chloride, Blood 106.0 mmol/L (98-108); Creatinine, Blood 0.99 mg/dL (0.60-1.20); Globulin, Blood 3.9 g/dL (2.2-4.0); Glucose, Blood 207.0 mg/dL (70-99); Potassium, Blood 3.5 mmol/L (3.5-5.5); Sodium, Blood 136.0 mmol/L (136-145); Total Protein, Blood 8.0 g/dL (6.4-8.2)
[2025-07-29] VITALS (11 sets, daily range): BP systolic 98–149; BP diastolic 62–99
[2025-07-29] MEDS ORDERED: DiphenhydrAMINE HCl 50 MG/ML 1ML Vial IV ONE ×2 (00:25→02:20)
[2025-07-29 01:15] LABS: Influenza A, PCR NEGATIVE (NEGATIVE); Influenza B, PCR NEGATIVE (NEGATIVE); Resp Syncytial Virus, PCR NEGATIVE (NEGATIVE); SARS-Cov-2 (COVID-19) PCR, MMC NEGATIVE (NEGATIVE)
[2025-07-29 02:55] LABS: Source, Urine Clean Catch
[2025-07-29] MEDS ORDERED: Albuterol 2.5 MG/3 ML VIAL INH SCH (02:55)
[2025-07-29] MEDS ORDERED: EpiNEPhrine 1 MG/1 ML 1ML Vial IM ONE (02:55)
[2025-07-29] MEDS ORDERED: FLU VACC TS2025-26(6MOS UP)/PF 45 MCG/0.5 ML SYRINGE IM SCH (03:05)
[2025-07-29 03:34] LABS: Bilirubin, Urine Neg (Neg); Glucose Qualitative, Urine Neg (Neg); Ketones, Urine Neg (Neg); Leukocyte Esterase, Urine Neg (Neg); Protein, Urine 1+ (Neg); Specific Gravity, Urine 1.010 (1.003-1.022); Urobilinogen, Urine NORM (Normal)
[2025-07-29] MEDS ORDERED: Albuterol 2.5 MG/3 ML VIAL INH PRN (03:50)
[2025-07-29 03:52] LABS: Color, Urine Yellow (P-Yellow)
[2025-07-29 03:54] LABS: Red Blood Cells, Urine 0-2 /hpf (0-2); White Blood Cells, Urine 0-2 /hpf (0-5)
[2025-07-29] MEDS ORDERED: NS 1,000 ML IV ONE (04:00)
[2025-07-29] MEDS ORDERED: LORazepam 2 MG/ML 1ML Injection IV ONE (04:00)
[2025-07-29 04:42] LABS: BASOPHILS ABSOLUTE AUTO 0.02 K/mm3 (0.00-0.23); BASOPHILS PERCENT AUTO 0 % (0-2); EOSINOPHILS ABSOLUTE AUTO 0.00 K/mm3 (0.00-0.68); EOSINOPHILS PERCENT AUTO 0 % (0-6); Hematocrit 40.8 % (37.0-53.0); Hemoglobin 13.8 g/dL (13.5-17.5); IMMATURE GRAN ABSOLUTE AUTO 0.03 K/mm3 (0.00-0.10); IMMATURE GRAN PERCENT AUTO 0 % (0-1); LYMPHOCYTES ABSOLUTE AUTO 0.42 K/mm3 (0.84-5.20); LYMPHOCYTES PERCENT AUTO 5 % (21-46); MONOCYTES ABSOLUTE AUTO 0.23 K/mm3 (0.16-1.47); MONOCYTES PERCENT AUTO 3 % (4-13); Mean Corpuscular HGB Conc 33.8 g/dL (31.5-36.5); Mean Corpuscular Volume 92 fL (80-100); NEUTROPHILS ABSOLUTE AUTO 8.59 K/mm3 (1.96-9.15); NEUTROPHILS PERCENT AUTO 93 % (41-73); NRBC ABSOLUTE 0.00 K/mm3 (0.00-0.02); NRBC Auto 0.0 /100 WBC (0.0-0.2); Platelet Count 247 K/mm3 (150-400); RDW Coefficient Variation 13.1 % (11.7-14.2); RDW Standard Deviation 44.4 fL (35.1-46.3)
[2025-07-29] MEDS ORDERED: DiphenhydrAMINE HCl 50 MG/ML 1ML Vial IV PRN (04:50)
--- NOTE | 2025-07-29 04:59 | NUR ---
ASSUMED CARE RECEIVED REPORT FROM REGINA THAKUR FROM ED @6295. PATIENT TRANSFERED TO ICU 7 @0539. PATIENT A&O X4, GOES BY SANTIAGO. IV'S PERIPHERAL BILATERAL IN AC'S AND SALINE LOCKED. PATIENT PUT IN GOWN AND PERSONAL ITEMS AND CLOTHES PLACED IN BAG AND LOCATED IN CHAIR. PATIENT TRANFERED TO RECLINER DUE TO MORE COMFORTABLE FOR HIM DUE TO CHRONIC NECK AND LOWER BACK PAIN.
[2025-07-29 05:09] LABS: C-REACTIVE PROTEIN, EXT RANGE 1.83 mg/dL (0.000-0.300); Thyroid Stimulating Hormone 0.717 uIU/mL (0.360-4.800)
[2025-07-29 05:10] LABS: Alanine Aminotransfer (ALT/SGP 64.0 U/L (12-78); Albumin, Blood 3.6 g/dL (3.4-5.0); Albumin/Globulin Ratio 1.0 (0.8-1.8); Anion Gap 11.0 mmol/L (3-11); Aspartate Aminotrans (AST/SGOT 45.0 U/L (12-37); Bilirubin, Total 0.5 mg/dL (0.1-1.0); Blood Urea Nitrogen 11.0 mg/dL (8-24); CO2, Blood 20.0 mmol/L (21-32); Calcium, Blood 8.0 mg/dL (8.5-10.1); Chloride, Blood 108.0 mmol/L (98-108); Creatinine, Blood 0.93 mg/dL (0.60-1.20); Globulin, Blood 3.5 g/dL (2.2-4.0); Glucose, Blood 184.0 mg/dL (70-99); Potassium, Blood 3.2 mmol/L (3.5-5.5); Sodium, Blood 136.0 mmol/L (136-145); Total Protein, Blood 7.1 g/dL (6.4-8.2)
[2025-07-29 05:30] LABS: U Amphetamine Screen DETECTED; U Barbiturate Screen Not Detected; U Benzodiazapine Screen Not Detected; U Buprenorphine Screen Not Detected; U Cannabinoids Screen DETECTED; U Cocaine Screen Not Detected; U Methadone Screen Not Detected; U Methamphetamine Screen DETECTED; U Opiates Screen Not Detected; U Oxycodone Screen Not Detected; U Phencyclidine Screen Not Detected
--- NOTE | 2025-07-29 06:23 | NUR ---
SHIFT SUMMARY PATIENT A&O X4. PATIENT IN RECLINER DUE TO CHRONIC NECK AND BACK PAIN. PATIENT STATES HE IS MORE COMFORTABLE IN RECLINER. PATIENT IS EATING AND DRINKING. PATIENT IS AMBULATING WITH NO ASSISTIVE DEVICE FROM BED TO RECLINER. HR IN THE 100'S BUT WHEN PATIENT MOVES OR TALKS HR INCREASES. SBP 120'S, PATIENT ON ROOM AIR SATTING 99%. USES RESTROOM IN ROOM NURSE REMINDED HIM TO CALL WHEN GETTING UP. HAS TWO PERIPHERAL IV'S RIGHT AND LEFT AC WITH NORMAL SALINE RUNNING @150MLS/HR. PATIENT ABLE TO USE CALL LIGHT AND MAKE NEEDS NOW. CALL LIGHT WITHIN REACH.
[2025-07-29] MEDS ORDERED: Enoxaparin 40 MG/0.4 ML SYR SC SCH (09:00)
[2025-07-29] MEDS ORDERED: EpiNEPhrine 1 MG/1 ML 1ML Vial IM PRN (14:25)
[2025-07-30] VITALS (9 sets, daily range): BP systolic 126–149; BP diastolic 96–114
--- NOTE | 2025-07-30 01:44 | NUR ---
TRANSFER OF CARE GAVE REPORT TO JOEY THAKUR ON MEDICAL FLOOR. PATIENT TRANSFERED TO ROOM 328 @0140.
--- NOTE | 2025-07-30 01:45 | NUR ---
PT HERE FROM ER. PT IS A&OX3. PT AMBULATORY TO MEDICAL FLOOR BED. PT IS REQUESTING FOOD/FLUIDS - PROVIDED. TELE IN PLACE -ST 120 PER DAWN BELL STAFF. SKIN CHECK WITH OFE COOK - SKIN WNL, EXCEPT BRUISING ON BACK OF LEGS.
--- NOTE | 2025-07-30 02:05 | NUR ---
Arrival to unit & settled to room Received report from Sonal PALUMBO, OFE. Patient arrived to unit via w/c around 0145 w/ telebox already attached. AO, able to make needs known. Converses appropriately and in full sentences. Appears hyperactive and is quite fidgety; cooperative and pleasant however. Replaced socks w/ non-skid hospital socks. VS obtained. Snacks provided. Pt on RA. OFE Lai returned from lunch break and to assume primary care.
--- NOTE | 2025-07-30 02:10 | NUR ---
AGREE WITH JOEY'S FINDINGS. PT REQUESTING FOOD/FLUIDS - PROVIDED. PT INDEPENDENT IN THE ROOM. SCRATCH YBARRA ON THE FRONT OF PT'S LEGS - NO OPEN SKIN. PT IS VERY TALKATIVE, FIDGETY. CALL LIGHT WITHIN REACH. BED IN LOW POSITION.
[2025-07-30 04:54] LABS: BASOPHILS ABSOLUTE AUTO 0.02 K/mm3 (0.00-0.23); BASOPHILS PERCENT AUTO 0 % (0-2); EOSINOPHILS ABSOLUTE AUTO 0.00 K/mm3 (0.00-0.68); EOSINOPHILS PERCENT AUTO 0 % (0-6); Hematocrit 37.7 % (37.0-53.0); Hemoglobin 12.9 g/dL (13.5-17.5); IMMATURE GRAN ABSOLUTE AUTO 0.11 K/mm3 (0.00-0.10); IMMATURE GRAN PERCENT AUTO 1 % (0-1); LYMPHOCYTES ABSOLUTE AUTO 0.92 K/mm3 (0.84-5.20); LYMPHOCYTES PERCENT AUTO 6 % (21-46); MONOCYTES ABSOLUTE AUTO 0.54 K/mm3 (0.16-1.47); MONOCYTES PERCENT AUTO 3 % (4-13); Mean Corpuscular HGB Conc 34.2 g/dL (31.5-36.5); Mean Corpuscular Volume 93 fL (80-100); NEUTROPHILS ABSOLUTE AUTO 14.25 K/mm3 (1.96-9.15); NEUTROPHILS PERCENT AUTO 90 % (41-73); NRBC ABSOLUTE 0.00 K/mm3 (0.00-0.02); NRBC Auto 0.0 /100 WBC (0.0-0.2); Platelet Count 251 K/mm3 (150-400); RDW Coefficient Variation 13.3 % (11.7-14.2); RDW Standard Deviation 45.8 fL (35.1-46.3)
[2025-07-30 05:28] LABS: Alanine Aminotransfer (ALT/SGP 61.0 U/L (12-78); Albumin, Blood 3.4 g/dL (3.4-5.0); Albumin/Globulin Ratio 1.0 (0.8-1.8); Anion Gap 8.0 mmol/L (3-11); Aspartate Aminotrans (AST/SGOT 34.0 U/L (12-37); Bilirubin, Total 0.4 mg/dL (0.1-1.0); Blood Urea Nitrogen 16.0 mg/dL (8-24); CO2, Blood 25.0 mmol/L (21-32); Calcium, Blood 8.6 mg/dL (8.5-10.1); Chloride, Blood 109.0 mmol/L (98-108); Creatinine, Blood 0.76 mg/dL (0.60-1.20); Globulin, Blood 3.4 g/dL (2.2-4.0); Glucose, Blood 163.0 mg/dL (70-99); Potassium, Blood 3.8 mmol/L (3.5-5.5); Sodium, Blood 138.0 mmol/L (136-145); Total Protein, Blood 6.8 g/dL (6.4-8.2)
--- NOTE | 2025-07-30 06:30 | NUR ---
SHIFT SUMMARY - NO ACUTE CHANGES SINCE TRANSFER TO MEDICAL FLOOR FROM ICU LAST NOC. PT'S MAIN COMPLAINT HAS BEEN LACK OF SLEEP FOR 3-4 DAYS. PT WAS ABLE TO SLEEP FOR APPX 2 HOURS LAST NOC. PT MEDICATED X1 FOR NECK PAIN - PT HAS EXTENSIVE NECK SURGERY HISTORY. PT HAS BEEN UP INDEPENDENTLY IN THE ROOM. CALL LIGHT WITHIN REACH. BED IN LOW POSITION. FLUIDS AT BEDSIDE. PT ALSO HAD A SNACK LAST NOC.
--- NOTE | 2025-07-30 16:36 | NUR ---
SHIFT SUMMARY: PATIENT A/OX4, ANXIOUS AT TIMES, FOLLOWING COMMANDS, PLEASANT AND COOPERATIVE c CARE. PATIENT MEDICATED X1 FOR ANXIETY AND X1 FOR NECK PAIN PER EMAR. PATIENT DENIES CP/PRESSURE, SOB AND DIZZINESS. PATIENT ON TELE ST HR LOW 100 TO 118'S BPM. PATIENT CONTINENT OF BAB, AMBULATES IN ROOM AND HALLWAY INDEPENDENTLY T/O SHIFT. HYPERTINSIVE-DR. ALFREDO IS AWARE, PLACED CONSULT FOR NEPHROLOGY AND HE SPOKE TO DR. ESQUIVEL. PATIENT AWAITING FOR DR. ESQUIVEL TO SEE HIM. PER PATIENT HE SPOKE TO DR. ESQUIVEL OVER THE PHONE THIS AFTERNOON AND HE IS COMING THIS EVENING. PATIENT REPORTS HE IS BEEN A PATIENT OF DR. ESQUIVEL FOR 20 YRS. PATIENT AGREED TO STAY ONE MORE NIGHT AND WOULD LIKE TO GO HOME TOMORROW. PATIENT HAS HAD NO COMPLAINTS OR NEW CONCERN THIS SHIFT. BED IN LOWEST POSITION. CALL LIGHT IN REACH.
[2025-07-30] MEDS ORDERED: AZILSARTAN 40 MG PO SCH (21:00)
[2025-07-31 00:10] VITALS: BP 152/104
[2025-07-31 03:48] VITALS: BP 139/90
[2025-07-31 04:42] LABS: Hematocrit 36.1 % (37.0-53.0); Hemoglobin 12.3 g/dL (13.5-17.5)
[2025-07-31 04:58] LABS: Albumin, Blood 3.3 g/dL (3.4-5.0); Anion Gap 9 mmol/L (3-11); Blood Urea Nitrogen 19 mg/dL (8-24); CO2, Blood 26 mmol/L (21-32); Calcium, Blood 8.7 mg/dL (8.5-10.1); Chloride, Blood 108 mmol/L (98-108); Creatinine, Blood 0.79 mg/dL (0.60-1.20); Glucose, Blood 198 mg/dL (70-99); Magnesium, Blood 2.1 mg/dL (1.6-2.4); Phosphorus, Blood 1.5 mg/dL (2.5-4.9); Potassium, Blood 3.7 mmol/L (3.5-5.5); Sodium, Blood 139 mmol/L (136-145)
--- NOTE | 2025-07-31 05:11 | NUR ---
SHIFT SUMMARY RESUMED ANTIHYPERTENSIVES AT DECREASED FREQUENCY PER DR. ESQUIVEL WHO ALSO ADVISES SECONDARY HYPERTENSION WORKUP IF BP IS NOT IMPROVED THIS AM DESPITE MEDS. ALSO ADVISES DERM EVAL TO R/O VASCULITIC ORIGIN OF HTN. PT CHRONIC NECK AND BACK PAIN WELL-CONTROLLED WITH OXYCODONE PER EMAR. PT WOULD LIKE BOWEL CARE THIS AM SINCE HE'S BEEN CONSTIPATED X3 DAYS. INDEPENDENT, A&OX4. TAKING SEVERAL SNACKS PO THIS EVENING. TELE: MAINTAINING SR TO ST AT 80-[address] IMPROVED AFTER HOME DOSE OF METPROLOL AT 2100. AWAITING RE-EVAL BY DR. ESQUIVEL THIS AM. PT WANTING TO RETURN HOME.
[2025-07-31] MEDS ORDERED: Sodium Phosphate 20 MM in Dextrose 5% 500 ML IV STA (06:38)
[2025-07-31 07:35] VITALS: BP 147/103
[2025-07-31 15:04] VITALS: BP 150/103
--- NOTE | 2025-07-31 17:01 | NUR ---
SHIFT SUMMARY PT AOX4, COOPERATIVE, ABLE TO MAKE NEEDS KNOWN. PT IS IND IN ROOM, DID INFUSED PHOS THIS AM PER LAB LEVELS. C/O PAIN, MEDICATING PER EMAR. PT HAS BEEN PLEASANT THIS SHIFT. MUSIC COMPOSITION TEACHER DID TALK WITH PT AND REFERRED PT BACK TO PRIMARY CARE PROVIDER. PT READY TO BE DISCHARGE. THIS RN DID CALL MD AND LEFT VOICEMAIL ABOUT PT WANTING TO BE DISCHARGED. BED IN LOWEST POSITION, CALL LIGHT WITHIN REACH.
[2025-07-31 19:43] VITALS: BP 135/94
[2025-08-01 00:41] VITALS: BP 130/93
[2025-08-01 04:38] VITALS: BP 120/85
[2025-08-01 04:44] LABS: BASOPHILS ABSOLUTE AUTO 0.03 K/mm3 (0.00-0.23); BASOPHILS PERCENT AUTO 0 % (0-2); EOSINOPHILS ABSOLUTE AUTO 0.00 K/mm3 (0.00-0.68); EOSINOPHILS PERCENT AUTO 0 % (0-6); Hematocrit 36.0 % (37.0-53.0); Hemoglobin 12.3 g/dL (13.5-17.5); IMMATURE GRAN ABSOLUTE AUTO 0.27 K/mm3 (0.00-0.10); IMMATURE GRAN PERCENT AUTO 2 % (0-1); LYMPHOCYTES ABSOLUTE AUTO 1.35 K/mm3 (0.84-5.20); LYMPHOCYTES PERCENT AUTO 11 % (21-46); MONOCYTES ABSOLUTE AUTO 0.66 K/mm3 (0.16-1.47); MONOCYTES PERCENT AUTO 5 % (4-13); Mean Corpuscular HGB Conc 34.2 g/dL (31.5-36.5); Mean Corpuscular Volume 92 fL (80-100); NEUTROPHILS ABSOLUTE AUTO 10.09 K/mm3 (1.96-9.15); NEUTROPHILS PERCENT AUTO 81 % (41-73); NRBC ABSOLUTE 0.02 K/mm3 (0.00-0.02); NRBC Auto 0.2 /100 WBC (0.0-0.2); Platelet Count 251 K/mm3 (150-400); RDW Coefficient Variation 13.2 % (11.7-14.2); RDW Standard Deviation 44.7 fL (35.1-46.3)
[2025-08-01 05:13] LABS: Albumin, Blood 2.9 g/dL (3.4-5.0); Anion Gap 8 mmol/L (3-11); Blood Urea Nitrogen 19 mg/dL (8-24); CO2, Blood 26 mmol/L (21-32); Calcium, Blood 8.7 mg/dL (8.5-10.1); Chloride, Blood 106 mmol/L (98-108); Creatinine, Blood 0.79 mg/dL (0.60-1.20); Glucose, Blood 182 mg/dL (70-99); Magnesium, Blood 2.0 mg/dL (1.6-2.4); Phosphorus, Blood 2.4 mg/dL (2.5-4.9); Potassium, Blood 4.1 mmol/L (3.5-5.5); Sodium, Blood 136 mmol/L (136-145)
[2025-08-01] MEDS ORDERED: Sodium Phosphate 20 MM in Dextrose 5% 500 ML IV STA (05:36)
--- NOTE | 2025-08-01 05:57 | NUR ---
SHIFT SUMMARY PT A&OX4, PLEASANT AND COOPERATIVE WITH CARE. PT IS FIDGETING AND VERY TALKATIVE. PT INDEPENDENT IN THE ROOM AND CALLS APPROPRIATELY. PT HOPING TO BE DISCHARGED TODAY. PT RESTED T/O SHIFT, BED IN THE LOWEST POSITION, AND CALL LIGHT WITHIN REACH.
[2025-08-01 07:45] VITALS: BP 136/95
[2025-08-01] MEDS ORDERED: ZYRTEC10 M2 PO (12:12)
[2025-08-01] MEDS ORDERED: BENADRYL25 MG PO (12:13)
[2025-08-01] MEDS ORDERED: EPIPEN0.3 MG/0.3 IM (12:15)
[2025-08-01] MEDS ORDERED: PRED20 PO (12:15)
[2025-08-01] MEDS ORDERED: PEPCID20 MG PO (12:15)
--- NOTE | 2025-08-01 12:45 | NUR ---
SHIFT SUMMARY AND DISCHARGE PATIENT ALERT AND INTERACTIVE. PATIENT INDEPENDENT IN THE ROOM. PATIENT DENIES ANY SOB OR RASH. DISCHARGE INSTRUCTIONS REVIEWED WITH PATIENT AND S.O. PATIENT AMBULATED OUT. IV REMOVED PRIOR TO DISCHARGE. ROOM CHECK DONE BEFORE DEPARTURE. BELONGINGS SENT HOME WITH PATIENT.
[2025-08-01 17:52] LABS: TRYPTASE 18.2 ug/L (<=10.9)
[2025-08-02 09:06] LABS: C-1-ESTERASE INHIBITOR 29 mg/dL (21-38)
[2025-08-02 13:29] LABS: MYELOPEROXIDASE (MPO) AB,IGG 0 AU/mL (0-19); SERINE PROTEINASE 3 PR3 AB,IGG 0 AU/mL (0-19)
[2025-08-03 08:14] LABS: ANTINUCLEAR AB (ANA),HEP-2,IGG <1:80 (<1:80)
== END 2025-08-01 13:49 | disposition home or self-care (01) ==
LOC: ER 22:31 → ICUE 22:32 → MEDS 22:32 → ICUE 22:32 → MEDS 07-30 01:57 → ENPENDDIS 08-01 07:49 → MEDS 08-01 13:49
PROVIDERS: Family Medicine; Internal Medicine Nephrology; Student in an Organized Health Care Education/Training Program; ADMIT Student in an Organized Health Care Education/Training Program
DX: T78.2XXA Anaphylactic shock, unspecified, initial encounter (principal); L50.9 Urticaria, unspecified; I10 Essential (primary) hypertension; E83.39 Other disorders of phosphorus metabolism; I12.9 Hypertensive chronic kidney disease with stage 1 through stage 4 chronic kidney disease, or unspecified chronic kidney disease; N18.1 Chronic kidney disease, stage 1; E87.6 Hypokalemia; Z88.7 Allergy status to serum and vaccine; Z88.8 Allergy status to other drugs, medicaments and biological substances
CPT/HCPCS: 36415; 74177; 80053; 80069; 81001; 83516; 83520; 83690; 83735; 84443; 85014; 85018; 85025; 85651; 86039; 86140; 86160; 87637; 93005; 93010; 94760; 94762; 96365; 96366; 96372; 96372-59; 96374; 96375; 96376; 99285-25; A9270; G0378; J0169; J1200; J1650; J2060; J2405; J2919; J7030; J7060; Q9967